=== PATIENT | female | born 1945 | race Caucasian/White ===

== ENCOUNTER 2018-03-20 06:38 | Day surgery (SDC) | payer MEDICARE, OTHER ==
[2018-03-20] VITALS (15 sets, daily range): BP systolic 116–154; BP diastolic 53–92
[~2018-03-20] VITALS: Ht 157.5 cm; Wt 82.8 kg
[~2018-03-20 06:38] MED LIST: CARV6.252 PO; RIVA20TA PO; TAMO20TA4 PO
[2018-03-20 07:32] LABS: BASOPHILS % (AUTO) 0.2 % (0-1); EOSINOPHILS # (AUTO) 0.1 X10'3 (0-0.9); EOSINOPHILS % (AUTO) 1.1 % (0-6); HEMATOCRIT 35.2 % (35.0-45.0); HEMOGLOBIN 11.9 g/dl (12.0-16.0); LYMPHOCYTES # (AUTO) 4.1 X10'3 (1.1-4.8); LYMPHOCYTES % (AUTO) 39.3 % (21-51); MEAN CORPUSCULAR HEMOGLOBIN 31.8 PG (27.0-31.0); MEAN CORPUSCULAR HGB CONC 33.8 % (33.0-36.5); MEAN CORPUSCULAR VOLUME 93.9 FL (78-98); MEAN PLATELET VOLUME 5.8 FL (7.4-10.4); MONOCYTES # (AUTO) 0.9 X10'3 (0-0.9); MONOCYTES % (AUTO) 8.7 % (2-12); NEUTROPHILS # (AUTO) 5.3 X10'3 (1.8-7.7); NEUTROPHILS % (AUTO) 50.7 % (42-75); PLATELET COUNT 361 X10'3 (140-440); RED BLOOD COUNT 3.75 X10'6 (4.20-5.60); RED CELL DISTRIBUTION WIDTH 13.8 % (11.5-14.5); WHITE BLOOD COUNT 10.4 X10'3 (4.5-11.0)
[2018-03-20 07:42] LABS: ALBUMIN 3.1 G/DL (3.4-5.0); ANION GAP 9 (8-16); BLOOD UREA NITROGEN 16 MG/DL (7-18); BUN/CREATININE RATIO 18.8 (6.6-38.0); CALCIUM 8.4 MG/DL (8.5-10.1); CHLORIDE 107 MMOL/L (99-107); CREATININE 0.85 MG/DL (0.40-0.90); GLUCOSE 126 MG/DL (70-104); POTASSIUM 3.9 MMOL/L (3.5-5.1); SODIUM 141 MMOL/L (135-145); TOTAL CARBON DIOXIDE 24.9 MMOL/L (24-32); eGFR 66 ML/MIN
[2018-03-20] MEDS ORDERED: CHEMOTHERAPY (07:58)
[2018-03-20] MEDS ORDERED: FULVESTRANT (08:04)
[2018-03-20] MEDS ORDERED: [UNRECOGNIZED DRUG - OTHER] (08:05)
[2018-03-20] MEDS ORDERED: normal saline 1000ml 1,000 ML IV SCH (09:00)
[2018-03-20] MEDS ORDERED: LIDOcaine 1%/PF 5ML 10 MG/ML VIAL ONE (09:11)
[2018-03-20] MEDS ORDERED: fentaNYL/PF 50MCG/1 ML 2ML syringe ONE (09:18)
== END 2018-03-20 12:20 | disposition home or self-care (01) ==
LOC: SSTAY O 06:38
PROVIDERS: ATTEND Radiology Diagnostic Radiology
DX: C78.5 Secondary malignant neoplasm of large intestine and rectum (principal); I49.8 Other specified cardiac arrhythmias; E78.5 Hyperlipidemia, unspecified; G47.33 Obstructive sleep apnea (adult) (pediatric); M81.0 Age-related osteoporosis without current pathological fracture; Z98.41 Cataract extraction status, right eye; Z98.42 Cataract extraction status, left eye; Z92.21 Personal history of antineoplastic chemotherapy; Z92.3 Personal history of irradiation; Z87.440 Personal history of urinary (tract) infections; Z85.3 Personal history of malignant neoplasm of breast; Z90.11 Acquired absence of right breast and nipple; Z90.49 Acquired absence of other specified parts of digestive tract; Z87.891 Personal history of nicotine dependence; Z99.81 Dependence on supplemental oxygen; Z98.890 Other specified postprocedural states; Z79.899 Other long term (current) drug therapy; Z82.49 Family history of ischemic heart disease and other diseases of the circulatory system
CPT/HCPCS: 36415; 49180; 77012; 80048; 85025; 85610; J2001; J3010; J7030; 88305; 88341; 88342

== ENCOUNTER 2023-12-07 11:16 | Emergency (ER) | payer MEDICARE, OTHER ==
[~2023-12-07] VITALS: Ht 157.5 cm; Wt 64.0 kg
[~2023-12-07 11:16] MED LIST changes: +CHEMOTHERAPY; +FULVESTRANT; -TAMO20TA4 PO; +[UNRECOGNIZED DRUG - OTHER]
[2023-12-07] MEDS: normal saline 1000ML IV soln IVB ONE (11:59)
[2023-12-07] MEDS: HYDROcodone/acetaminophen 10/325mg tab PO ONE (12:22)
[2023-12-07 12:27] LABS: BASOPHILS # (AUTO) 0.1 X10'3 (0-0.2); BASOPHILS % (AUTO) 1.1 % (0-1); EOSINOPHILS # (AUTO) 0.1 X10'3 (0-0.9); EOSINOPHILS % (AUTO) 1.2 % (0-6); HEMATOCRIT 33.7 % (35.0-45.0); HEMOGLOBIN 10.8 g/dl (12.0-16.0); LYMPHOCYTES # (AUTO) 1.5 X10'3 (1.1-4.8); MEAN CORPUSCULAR HEMOGLOBIN 28.6 PG (27.0-31.0); MEAN CORPUSCULAR HGB CONC 32.1 g/dL (33.0-36.5); MEAN PLATELET VOLUME 6.9 FL (7.4-10.4); MONOCYTES # (AUTO) 0.6 X10'3 (0-0.9); MONOCYTES % (AUTO) 10.5 % (2-12); NEUTROPHILS # (AUTO) 3.2 X10'3 (1.8-7.7); NEUTROPHILS % (AUTO) 59.2 % (42-75); PLATELET COUNT 430 X10'3 (140-440); RED BLOOD COUNT 3.79 X10'6 (4.20-5.60); RED CELL DISTRIBUTION WIDTH 14.2 % (11.5-14.5); WHITE BLOOD COUNT 5.3 X10'3 (4.5-11.0)
[2023-12-07 12:47] LABS: ALBUMIN 2.6 G/DL (3.4-5.0); ANION GAP 9 (8-16); BLOOD UREA NITROGEN 20 MG/DL (7-18); CALCIUM 8.9 MG/DL (8.5-10.1); CHLORIDE 102 MMOL/L (99-107); CREATININE 1.25 MG/DL (0.40-0.90); GLUCOSE 169 MG/DL (70-104); POTASSIUM 4.1 MMOL/L (3.5-5.1); PRO BRAIN NATRIURETIC PEPTIDE 2674 PG/ML (0-450); SODIUM 135 MMOL/L (135-145); TOTAL CARBON DIOXIDE 24.4 MMOL/L (24-32); eCRCL 29 ML/MIN; eGFR 41 ML/MIN
[2023-12-07] MEDS: acetaminophen 1,000mg/100ml IV 100 ML IV STA (13:27)
[2023-12-07] MEDS: morphine 4 MG/ML inj SYRINge IV ONE (13:27)
[2023-12-07] MEDS ORDERED: AMI200T PO (14:32)
[2023-12-07] MEDS ORDERED: DABI150C PO (14:34)
[2023-12-07] MEDS ORDERED: HYDR-3972 PO (14:37)
[2023-12-07 14:43] LABS: BILIRUBIN,URINE NEGATIVE (Neg); CLARITY,URINE CLEAR (Clear); COLOR,URINE YELLOW (Yellow); GLUCOSE, URINE NEGATIVE (Neg); KETONES,URINE NEGATIVE (Neg); LEUKOCYTE ESTERASE ,URINE NEGATIVE (Neg); NITRITES, URINE NEGATIVE (Neg); OCCULT BLOOD,URINE NEGATIVE (Neg); PH,URINE 5.5 (4.8-8.0); PROTEIN,URINE NEGATIVE (Neg); UROBILINOGEN,URINE 0.2 E.U/dL (0.2-1.0)
[2023-12-07 14:45] LABS: UA COLLECTION TYPE CLN CATCH MIDSTREAM
[2023-12-07 15:01] VITALS: BP 104/53; PULSE 85; RESP 16; TEMP 97.8; O2SAT 97
== END 2023-12-07 15:03 | disposition home or self-care (01) ==
LOC: ER 11:16
DX: R18.8 Other ascites (principal); R10.13 Epigastric pain; Z79.899 Other long term (current) drug therapy
CPT/HCPCS: 36415; 71045; 74176; 80048; 81003; 83880; 84145; 84484; 85025; 93005; 96361; 96365; 96375; 99285; A4615; J0131; J2270; J7030

== ENCOUNTER 2024-01-23 09:13 | Emergency (ER) | payer MEDICARE, OTHER ==
[~2024-01-23] VITALS: Ht 157.5 cm; Wt 63.6 kg
[~2024-01-23 09:13] MED LIST changes: +AMI200T PO; -CHEMOTHERAPY; +DABI150C PO; -FULVESTRANT; -RIVA20TA PO; -[UNRECOGNIZED DRUG - OTHER]
[2024-01-23 09:15] VITALS: TEMP 97.7
[2024-01-23 10:12] LABS: BASOPHILS % (AUTO) 0.2 % (0-1); EOSINOPHILS % (AUTO) 0 % (0-6); HEMATOCRIT 28.8 % (35.0-45.0); HEMOGLOBIN 9.2 g/dl (12.0-16.0); LYMPHOCYTES # (AUTO) 1.1 X10'3 (1.1-4.8); LYMPHOCYTES % (AUTO) 18.2 % (21-51); MEAN CORPUSCULAR HEMOGLOBIN 26.6 PG (27.0-31.0); MEAN CORPUSCULAR HGB CONC 31.9 g/dL (33.0-36.5); MEAN CORPUSCULAR VOLUME 83.4 FL (78-98); MEAN PLATELET VOLUME 6.1 FL (7.4-10.4); MONOCYTES # (AUTO) 0.6 X10'3 (0-0.9); MONOCYTES % (AUTO) 9.9 % (2-12); NEUTROPHILS # (AUTO) 4.2 X10'3 (1.8-7.7); NEUTROPHILS % (AUTO) 71.7 % (42-75); PLATELET COUNT 411 X10'3 (140-440); RED BLOOD COUNT 3.45 X10'6 (4.20-5.60); RED CELL DISTRIBUTION WIDTH 17.3 % (11.5-14.5); WHITE BLOOD COUNT 5.9 X10'3 (4.5-11.0)
[2024-01-23] MEDS: ipratropium/albuterol 3ml nebule NEB ONE (10:16)
[2024-01-23 10:18] VITALS: PULSE 94; RESP 24; O2SAT 100
[2024-01-23 10:28] VITALS: PULSE 94; RESP 24; O2SAT 97
[2024-01-23 10:34] LABS: ALBUMIN 2.6 G/DL (3.4-5.0); ANION GAP 11 (8-16); BLOOD UREA NITROGEN 16 MG/DL (7-18); BUN/CREATININE RATIO 12.8 (10.0-20.0); CALCIUM 8.4 MG/DL (8.5-10.1); CHLORIDE 102 MMOL/L (99-107); CREATININE 1.25 MG/DL (0.40-0.90); GLUCOSE 131 MG/DL (70-104); MAGNESIUM 1.2 MG/DL (1.5-2.4); POTASSIUM 3.3 MMOL/L (3.5-5.1); PRO BRAIN NATRIURETIC PEPTIDE 6157 PG/ML (0-450); SODIUM 137 MMOL/L (135-145); TOTAL CARBON DIOXIDE 24.5 MMOL/L (24-32); eCRCL 29 ML/MIN; eGFR 41 ML/MIN
[2024-01-23 12:05] LABS: BILIRUBIN,URINE NEGATIVE (Neg); CLARITY,URINE SLIGHTLY CLOUDY (Clear); COLOR,URINE YELLOW (Yellow); GLUCOSE, URINE NEGATIVE (Neg); KETONES,URINE NEGATIVE (Neg); LEUKOCYTE ESTERASE ,URINE NEGATIVE (Neg); NITRITES, URINE NEGATIVE (Neg); OCCULT BLOOD,URINE NEGATIVE (Neg); PROTEIN,URINE TRACE mg/dl (Neg); UROBILINOGEN,URINE 0.2 E.U/dL (0.2-1.0)
[2024-01-23 12:11] LABS: UA COLLECTION TYPE OTHER
[2024-01-23 12:13] LABS: AMORPHOUS URATES 1+; BACTERIA,URINE FEW /HPF (Neg); RBC,URINE 0-2 /HPF (0-2); SQUAMOUS EPITHELIAL CELL,UR FEW /LPF (FEW); WBC,URINE 0-4 /HPF (0-4)
[2024-01-23] MEDS: LIDOcaine 5% patch TP STA (12:13)
[2024-01-23] MEDS: potassium Cl 20 mEq SR tablet PO STA (13:19)
[2024-01-23 13:31] VITALS: BP 125/65; PULSE 96; RESP 23; O2SAT 97
== END 2024-01-23 13:48 | disposition home or self-care (01) ==
LOC: ER 09:15
DX: E87.6 Hypokalemia (principal); J90 Pleural effusion, not elsewhere classified; W18.39XA Other fall on same level, initial encounter; Y93.89 Activity, other specified; Y92.89 Other specified places as the place of occurrence of the external cause; Y99.8 Other external cause status
CPT/HCPCS: 36415; 71045; 80048; 81001; 83735; 83880; 84145; 84484; 85025; 93005; 94640; 99285; C1758; Z7610; 94760